=== PATIENT | female | born 1970 | race Asian ===

== ENCOUNTER 2018-07-07 08:52 | Day surgery (SDC) | payer OTHER | END 2018-07-07 09:32 | disposition home or self-care (01) | LOC: OR 08:52 | PROC: 3E0R33Z Introduction of Anti-inflammatory into Spinal Canal, Percutaneous Approach (ICD-10-PCS; principal; 2018-07-07) | PROC: B01BYZZ Fluoroscopy of Spinal Cord using Other Contrast (ICD-10-PCS; 2018-07-07) | DX: M54.17 Radiculopathy, lumbosacral region (principal); M51.27 Other intervertebral disc displacement, lumbosacral region | CPT/HCPCS: J1020 ==